=== PATIENT | female | born 1970 | race Caucasian/White ===

== ENCOUNTER 2017-08-28 14:47 | Emergency (ER) | payer OTHER ==
--- NOTE | 2017-08-28 15:40 | UC ---
Skin Complaint HPI - HPI Summary HPI Summary: Pt presents with rash to b/l ankles first noticed 3 days ago. She tells me that she was wearing ankle-high "mud boots" and walking through a field near her house. Later that night she noticed itching and redness to her ankles. This has persisted and today she noticed a small blister form on the inside of her left ankle. Denies drainage, bleeding, pain, or spreading of rash. - History of Current Complaint Time Seen by Provider: 08/28/17 15:40 Stated Complaint: RASH ON FEET Hx Obtained From: Patient Hx Last Menstrual Period: 10/08/12 Onset/Duration: Sudden Onset Skin Exposure Onset/Duration: Days Ago Timing: Constant Onset Severity: Mild Current Severity: Mild Pain Intensity: 2 Pain Scale Used: 0-10 Numeric - Allergy/Home Medications Allergies/Adverse Reactions: Allergies Allergy/AdvReac Type Severity Reaction Status Date / Time apple Allergy Swelling Verified 08/28/17 15:46 Of Face,Lips,& Throat Beef Containing Products Allergy Anaphylatic Verified 08/28/17 15:46 Shock Egg Derived Allergy Anaphylatic Verified 08/28/17 15:47 Shock gluten Allergy Rash Verified 08/28/17 15:47 lactose Allergy Rash Verified 08/28/17 15:46 shellfish derived Allergy Anaphylatic Verified 08/28/17 15:48 Shock Review of Systems Constitutional: Negative Skin: Rash Respiratory: Negative Cardiovascular: Negative Gastrointestinal: Negative Neurovascular: Negative Neurological: Negative Psychological: Negative All Other Systems Reviewed And Are Negative: Yes PMH/Surg Hx/FS Hx/Imm Hx Respiratory History: Asthma - Surgical History Surgical History: Yes Surgery Procedure, Year, and Place: [place] Teeth Removal 1986 - Family History Known Family History: Positive: None - Social History Lives: With Family Alcohol Use: None Substance Use Type: Cocaine Smoking Status (MU): Never Smoked Tobacco Physical Exam - Summary Physical Exam Summary: GENERAL: NAD. WDWN. No pain distress. SKIN: B/L ankles: Mild erythematous maculopapular rash to medial left and right ankle. Left medial ankle with a 4mm intact blister. No bleeding, discharge, streaking, or open sore. NECK: Supple. Nontender. No lymphadenopathy. CHEST: CTAB. No r/r/w. No accessory muscle use. Breathing comfortably and in no distress. CV: RRR. Without m/r/g. Pulses intact. Brisk cap refill. NEURO: Alert. CN II-XII grossly intact. PSYCH: Age appropriate behavior. Triage Information Reviewed: Yes Course/Dx - Course Course Of Treatment: Suspect contact dermatitis. Will rx for steroid cream. F/u prn - Diagnoses Provider Diagnoses: Contact dermatitis b/l ankles Discharge - Sign-Out/Discharge Documenting (check all that apply): Discharge/Admit/Transfer - Discharge Plan Condition: Stable Disposition: HOME Prescriptions: Betamethasone June 0.1% CM(NF) [Valisone 0.1% CM(NF)] 1 applic TOPICAL BID #1 tube Patient Education Materials: Contact Dermatitis (DC) Referrals: Lakeshia Cole MD [Primary Care Provider] - Additional Instructions: If you develop a fever, shortness of breath, chest pain, new or worsening symptoms - please call your PCP or go to the ED. Your blood pressure was high at todays visit. Please see your primary provider within 4 weeks for recheck and re-evaluation. - Billing Disposition and Condition Condition: STABLE Disposition: HOME Images Feet (Multiple View): 1 - Rash 2 - Rash
[2017-08-28 15:41] VITALS: BP 144/95
[2017-08-28] MEDS ORDERED: Hydrocortisone 1% CREAM* 30 GM TUBE TOPICAL ONE (16:01)
== END 2017-08-28 16:15 | disposition home or self-care (01) ==
LOC: UCEAST 14:47
DX: L25.9 Unspecified contact dermatitis, unspecified cause (principal); J45.909 Unspecified asthma, uncomplicated
CPT/HCPCS: 99212; A9270-GY; G0463

== ENCOUNTER 2018-09-29 08:27 | Emergency (ER) | payer OTHER ==
[2018-09-29 08:40] VITALS: BP 142/90
--- NOTE | 2018-09-29 09:42 | ED ---
Throat Pain/Nasal Congestion - HPI Summary HPI Summary: 48 yr old with intermittent sore throat, and sweats and fatigue. Onset of symptoms over a month ago. SHe is concerned that she has mono. She denies stridor, drooling. Symptoms are moderate. She has not taken her temperature. - History of Current Complaint Chief Complaint: UCGeneralIllness Time Seen by Provider: 09/29/18 09:06 - Allergies/Home Medications Allergies/Adverse Reactions: Allergies Allergy/AdvReac Type Severity Reaction Status Date / Time apple Allergy Swelling Verified 09/29/18 08:41 Of Face,Lips,& Throat Beef Containing Products Allergy Anaphylatic Verified 09/29/18 08:41 Shock Egg Derived Allergy Anaphylatic Verified 09/29/18 08:41 Shock gluten Allergy Rash Verified 09/29/18 08:41 lactose Allergy Rash Verified 09/29/18 08:41 shellfish derived Allergy Anaphylatic Verified 09/29/18 08:41 Shock Home Medications: Home Medications Multivitamin [Multivitamins] 1 tab PO DAILY 09/29/18 [History Confirmed 09/29/18 ] PMH/Surg Hx/FS Hx/Imm Hx Endocrine/Hematology History: Denies: Hx Diabetes, Hx Thyroid Disease Cardiovascular History: Denies: Hx Hypertension Respiratory History: Reports: Hx Asthma Denies: Hx Chronic Obstructive Pulmonary Disease (COPD) GI History: Denies: Hx Ulcer - Surgical History Surgery Procedure, Year, and Place: [place] Teeth Removal 1986 Infectious Disease History: No Infectious Disease History: Denies: Hx Hepatitis, Hx Human Immunodeficiency Virus (HIV), Traveled Outside the [place] in Last 30 Days - Family History Known Family History: Positive: None - Social History Occupation: Employed Full-time Alcohol Use: None Substance Use Type: Reports: None Smoking Status (MU): Never Smoked Tobacco Review of Systems Positive: Chills, Fatigue Positive: Sore Throat All Other Systems Reviewed And Are Negative: Yes Physical Exam Triage Information Reviewed: Yes Vital Signs On Initial Exam: Initial Vitals Temp Pulse Resp BP Pulse Ox 98 F 81 17 142/90 99 09/29/18 08:37 09/29/18 08:37 09/29/18 08:37 09/29/18 08:37 09/29/18 08:37 Vital Signs Reviewed: Yes Appearance: Positive: Well-Appearing, No Pain Distress, Obese Skin: Positive: Warm, Skin Color Reflects Adequate Perfusion Head/Face: Positive: Normal Head/Face Inspection Eyes: Positive: EOMI, DEON ENT: Positive: Pharyngeal erythema. Negative: Nasal congestion, Nasal drainage Neck: Positive: Nontender, No Lymphadenopathy Respiratory/Lung Sounds: Positive: Clear to Auscultation, Breath Sounds Present Cardiovascular: Positive: RRR. Negative: Murmur Abdomen Description: Negative: Distended Musculoskeletal: Positive: Strength/ROM Intact Neurological: Positive: Sensory/Motor Intact, Alert, Oriented to Person Place, Time, CN Intact II-III Psychiatric: Positive: Normal Diagnostics - Vital Signs Vital Signs Temp Pulse Resp BP Pulse Ox 09/29/18 08:37 98 F 81 17 142/90 99 - Laboratory Lab Results: Lab Results 09/29/18 Range/Units 09:26 Group A Strep Rapid Negative (Negative) Lab Statement: Any lab studies that have been ordered have been reviewed, and results considered in the medical decision making process. EENT Course/Dx - Course Course Of Treatment: 48 yr old with sore throat and fatigue. mono spot sent. FU with PMD. - Diagnoses Provider Diagnoses: Sore throat, Hypertension Discharge - Sign-Out/Discharge Documenting (check all that apply): Patient Departure All imaging exams completed and their final reports reviewed: No Studies - Discharge Plan Condition: Good Disposition: HOME Patient Education Materials: Pharyngitis (ED), Fatigue (ED), Hypertension (ED) Referrals: Lakeshia Cole MD [Primary Care Provider] - As Soon As Possible - Billing Disposition and Condition Condition: GOOD Disposition: Home
[2018-09-30 16:21] LABS: EBV Capsid Ag IgG Ab Positive (Negative); EBV Capsid Ag IgM Ab Negative (Negative); Epstein-Barr Nuclear Antigen Positive (Negative)
== END 2018-09-29 09:49 | disposition home or self-care (01) ==
LOC: UCEAST 08:27
DX: J02.9 Acute pharyngitis, unspecified (principal); I10 Essential (primary) hypertension
CPT/HCPCS: 36415; 86308; 86664; 86665; 87651; 99211; G0463

== ENCOUNTER 2019-02-28 11:36 | Emergency (ER) | payer OTHER ==
--- OUTSIDE RECORDS SUMMARY | 2019-02-28 11:41 | XMS REPORT | Continuity of Care Document ---
:1970 External Reference #:[id number] Author Name Alycia Swenson M.D. Address [address] [place] [address] Care Team Providers Name Role Phone Lakeshia Vitale M.D. 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 Onset: 01/02/2019 Allergic rhinitis Alycia Swenson M.D. Onset: 01/02/2019 Mild intermittent asthma Alycia Swenson M.D. Onset: 01/02/2019 Headache Alycia Swenson M.D. Onset: 01/02/2019 Social History Type Date Description Comments Sex Unknown ETOH Use Denies alcohol use Tobacco Use Start: Unknown Patient has never smoked Recreational Drug Use Denies Drug Use Allergies, Adverse Reactions, Alerts Description No Known Drug Allergies Medications Active Medications SIG Qnty Indications Ordering Provider Date Albuterol Sulfate HFA Lakeshia Vitale M.D. 108(90Base) mcg/Act Aerosol Advair Diskus prn Lakeshia Vitale M.D. 250-50mcg/Dose Aerosol Epipen 2-Angel use as directed Unknown 0.3mg/0.3ML Solution Auto-Inject Immunizations Description No Information Available Vital Signs Date Vital Result Comment 01/02/2019 2:05pm Height 68 inches 5'8" Weight 266.00 lb Weight 120.658 kg Respiratory Rate 16 /min Heart Rate 77 /min O2 % BldC Oximetry 98 % BP Systolic 119 mmHg BP Diastolic 71 mmHg Asthma Control Test 21 BMI (Body Mass Index) 40.4 kg/m2 Results Description No Information Available Procedures Date Code Description Status 01/02/2019 86271 Pre PFT Completed Medical Devices Description No Information Available Encounters Type Date Location Provider Dx Diagnosis Office Visit 01/02/2019 2:00p Mobile Alycia Swenson M.D. R51 Headache J45.20 Mild intermittent asthma, uncomplicated J30.9 Allergic rhinitis, unspecified L27.2 Dermatitis due to ingested food Assessments Date Code Description Provider 01/02/2019 R51 Headache Alycia Swenson M.D. 01/02/2019 J45.20 Mild intermittent asthma, uncomplicated Alycia Swenson M.D. 01/02/2019 J30.9 Allergic rhinitis, unspecified Alycia Swenson M.D. 01/02/2019 L27.2 Dermatitis due to ingested food Alycia Swenson M.D. Plan of Treatment No Information Available Functional Status Description No Information Available Mental Status Description No Information Available Referrals Refer to Reason for Referral Status Appt Date Ashia Hamilton MD Created [facility] [address] [place] [id number] [phone]
[2019-02-28 11:56] VITALS: BP 123/80
--- NOTE | 2019-02-28 12:42 | UC ---
Ear Complaint HPI - HPI Summary HPI Summary: pain in right ear for several days history of cerumen impaction-was used sesame oil for a few days-now has pain in right ear and decreased hearing - History of Current Complaint Chief Complaint: UCEar Stated Complaint: EAR COMPLAINT Time Seen by Provider: 02/28/19 12:37 Hx Obtained From: Patient Hx Last Menstrual Period: current ?: No Onset/Duration: Gradual Onset, Lasting Days, Still Present Severity Initially: Mild Severity Currently: Moderate Aggravating Factors: Nothing Alleviating Factors: Nothing Associated Signs/Symptoms: Positive: Hearing Loss - Allergies/Home Medications Allergies/Adverse Reactions: Allergies Allergy/AdvReac Type Severity Reaction Status Date / Time apple Allergy Swelling Verified 02/28/19 11:53 Of Face,Lips,& Throat Beef Containing Products Allergy Anaphylatic Verified 02/28/19 11:53 Shock Egg Derived Allergy Anaphylatic Verified 02/28/19 11:53 Shock gluten Allergy Rash Verified 02/28/19 11:53 lactose Allergy Rash Verified 02/28/19 11:53 shellfish derived Allergy Anaphylatic Verified 02/28/19 11:53 Shock PMH/Surg Hx/FS Hx/Imm Hx Previously Healthy: Yes - Surgical History Surgical History: Yes Surgery Procedure, Year, and Place: [place] Teeth Removal 1986 - Family History Known Family History: Positive: None - Social History Occupation: Employed Full-time Lives: With Family Alcohol Use: None Substance Use Type: None Smoking Status (MU): Never Smoked Tobacco Review of Systems All Other Systems Reviewed And Are Negative: Yes Constitutional: Positive: Negative Skin: Positive: Negative Eyes: Positive: Negative ENT: Positive: Ear Ache - right Respiratory: Positive: Negative Cardiovascular: Positive: Negative Gastrointestinal: Positive: Negative Genitourinary: Positive: Negative Motor: Positive: Negative Neurovascular: Positive: Negative Musculoskeletal: Positive: Negative Neurological: Positive: Negative Psychological: Positive: Negative Is Patient Immunocompromised?: No Physical Exam Triage Information Reviewed: Yes Appearance: Well-Appearing, No Pain Distress, Well-Nourished Vital Signs: Initial Vital Signs Temp 98.4 F 02/28/19 11:47 Pulse 88 02/28/19 11:47 Resp 16 02/28/19 11:47 BP 123/80 02/28/19 11:47 Pulse Ox 99 02/28/19 11:47 Vital Signs Reviewed: Yes Eye Exam: Normal Eyes: Positive: Conjunctiva Clear ENT Exam: Normal ENT: Positive: Normal ENT inspection, Hearing grossly normal, Pharynx normal, Nasal congestion, Other - bilateral ceruem impation r>l. Negative: Trismus, Muffled voice, Hoarse voice Dental Exam: Normal Neck exam: Normal Neck: Positive: Supple, Nontender, No Lymphadenopathy Respiratory Exam: Normal Respiratory: Positive: Chest non-tender, No respiratory distress, No accessory muscle use Cardiovascular Exam: Normal Cardiovascular: Positive: RRR, Pulses Normal, Brisk Capillary Refill Musculoskeletal Exam: Normal Musculoskeletal: Positive: Strength Intact, ROM Intact, No Edema Neurological Exam: Normal Neurological: Positive: Alert, Muscle Tone Normal Psychological Exam: Normal Skin Exam: Normal Ear Complaint Course/Dx - Course Course Of Treatment: good relief of pain and impaction with flush will follow with pcp prn - Differential Dx/Diagnosis Provider Diagnosis: Impacted cerumen of both ears Discharge ED - Sign-Out/Discharge Documenting (check all that apply): Patient Departure All imaging exams completed and their final reports reviewed: No Studies - Discharge Plan Condition: Stable Disposition: HOME Patient Education Materials: Cerumen Impaction (ED) Referrals: Lakeshia Cole MD [Primary Care Provider] - If Needed - Billing Disposition and Condition Condition: STABLE Disposition: Home
== END 2019-02-28 13:00 | disposition home or self-care (01) ==
LOC: UCEAST 11:36
DX: H61.23 Impacted cerumen, bilateral (principal); Z91.013 Allergy to seafood; Z91.012 Allergy to eggs; Z91.018 Allergy to other foods; Z91.011 Allergy to milk products
CPT/HCPCS: 99213; G0463

== ENCOUNTER 2019-03-27 19:24 | Emergency (ER) | payer OTHER ==
[2019-03-27 19:42] VITALS: BP 138/70
--- NOTE | 2019-03-27 20:01 | UC ---
Respiratory Complaint HPI - HPI Summary HPI Summary: patient with exacerbation of asthma symptoms---patient states chest is tight she did start to use her advair MDI--and using her albuterol 4-5 times a day-- low grade fever and fatigue---states she has not felt well since July when dx with ebv-- - History of Current Complaint Chief Complaint: UCRespiratory Stated Complaint: POSS URI, HAS ASTMHA, TROUBLE BREATHING Time Seen by Provider: 03/27/19 19:49 Hx Obtained From: Patient Hx Last Menstrual Period: 02/28/2019 ?: No Onset/Duration: Gradual Onset, Still Present Timing: Constant Pain Intensity: 0 Pain Scale Used: 0-10 Numeric Character: Cough: Nonproductive Aggravating Factors: Exertion, Deep Breaths, Recumbent Position Alleviating Factors: Bronchodilator Associated Signs And Symptoms: Positive: URI - Allergies/Home Medications Allergies/Adverse Reactions: Allergies Allergy/AdvReac Type Severity Reaction Status Date / Time apple Allergy Swelling Verified 03/27/19 19:42 Of Face,Lips,& Throat Beef Containing Products Allergy Anaphylatic Verified 03/27/19 19:42 Shock Egg Derived Allergy Anaphylatic Verified 03/27/19 19:42 Shock gluten Allergy Rash Verified 03/27/19 19:42 lactose Allergy Rash Verified 03/27/19 19:42 shellfish derived Allergy Anaphylatic Verified 03/27/19 19:42 Shock Home Medications: Home Medications Albuterol HFA INHALER* [Ventolin HFA Inhaler*] 2 puff INH Q4HR PRN 03/27/19 [ History Confirmed 03/27/19] Cholecalciferol (Vitamin D3) [Vitamin D3] 1,000 unit PO DAILY 03/27/19 [History Confirmed 03/27/19] Fluticasone-Salmeterol 250-50* [Advair Diskus 250-50*] 1 puff INH DAILY [History Confirmed 03/27/19] Loratadine [Claritin 10 MG CAP] 10 mg PO DAILY PRN 03/27/19 [History Confirmed 03/27/19] Magnesium 30 mg PO DAILY 03/27/19 [History Confirmed 03/27/19] Vitamin B Complex CAP* [B Complex CAP*] 1 cap PO DAILY 03/27/19 [History Confirmed 03/27/19] PMH/Surg Hx/FS Hx/Imm Hx Previously Healthy: No - EBV Respiratory History: Asthma - Surgical History Surgical History: Yes Surgery Procedure, Year, and Place: [place] Teeth Removal 1986 - Family History Known Family History: Positive: None - Social History Occupation: Unemployed Lives: Alone Alcohol Use: None Substance Use Type: None Smoking Status (MU): Never Smoked Tobacco Review of Systems All Other Systems Reviewed And Are Negative: Yes Constitutional: Positive: Fatigue Skin: Positive: Negative Eyes: Positive: Negative ENT: Positive: Negative Respiratory: Positive: Cough, Other - lung tightness Cardiovascular: Positive: Negative Gastrointestinal: Positive: Negative Genitourinary: Positive: Negative Motor: Positive: Negative Neurovascular: Positive: Negative Musculoskeletal: Positive: Negative Neurological: Positive: Negative Psychological: Positive: Negative Is Patient Immunocompromised?: No Physical Exam Triage Information Reviewed: Yes Appearance: No Pain Distress, Ill-Appearing - mild, Obese Vital Signs: Initial Vital Signs Temp 98.1 F 03/27/19 19:32 Pulse 100 03/27/19 19:32 Resp 20 03/27/19 19:32 BP 138/70 03/27/19 19:32 Pulse Ox 98 03/27/19 19:32 Vital Signs Reviewed: Yes Eye Exam: Normal Eyes: Positive: Conjunctiva Clear ENT Exam: Normal ENT: Positive: Normal ENT inspection, Pharynx normal, TMs normal, Uvula midline. Negative: Nasal congestion, Nasal drainage, Trismus, Muffled voice, Hoarse voice, Dental tenderness, Sinus tenderness Dental Exam: Normal Neck exam: Normal Neck: Positive: Supple, Nontender, No Lymphadenopathy Respiratory Exam: Normal Respiratory: Positive: Chest non-tender, Lungs clear, Normal breath sounds, No respiratory distress, No accessory muscle use Cardiovascular Exam: Normal Cardiovascular: Positive: RRR, No Murmur, Pulses Normal, Brisk Capillary Refill Musculoskeletal Exam: Normal Musculoskeletal: Positive: Strength Intact, ROM Intact, No Edema Neurological Exam: Normal Neurological: Positive: Alert, Muscle Tone Normal Psychological Exam: Normal Skin Exam: Normal Respiratory Course/Dx - Course Course Of Treatment: patient refused EKG--encouraged advair regularly and increase prn albuterol---d /t asthma and chronic fatigue will also add z-pack patient understands to follow with pcp this week - Differential Dx/Diagnosis Provider Diagnosis: Bronchospasm with bronchitis, acute, Exacerbation of asthma Discharge ED - Sign-Out/Discharge Documenting (check all that apply): Patient Departure All imaging exams completed and their final reports reviewed: No Studies - Discharge Plan Condition: Stable Disposition: HOME Prescriptions: Azithromycin TAB* [Zithromax TAB (Z-AGNES) 250 mg #6 tabs] 2 tab PO .TODAY, THEN 1 DAILY #1 agnes Patient Education Materials: Chronic Fatigue Syndrome (ED), Acute Bronchitis ( ED), Bronchospasm (ED) Referrals: Lakeshia Cole MD [Primary Care Provider] - 3 Days - Billing Disposition and Condition Condition: STABLE Disposition: Home
== END 2019-03-27 20:29 | disposition home or self-care (01) ==
LOC: UCEAST 19:24
DX: J45.901 Unspecified asthma with (acute) exacerbation (principal); J20.9 Acute bronchitis, unspecified; Z91.018 Allergy to other foods; Z91.012 Allergy to eggs; Z91.09 Other allergy status, other than to drugs and biological substances; Z91.011 Allergy to milk products; Z91.013 Allergy to seafood; Z79.899 Other long term (current) drug therapy
CPT/HCPCS: 99212; G0463

== ENCOUNTER 2019-04-09 18:00 | Observation (INO) | payer OTHER ==
[2019-04-09] MEDS ORDERED: Midazolam concentrated* 5 MG/ML 1 ml VIAL ONE ×2 (18:41)
--- NOTE | 2019-04-09 18:50 | ED ---
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 She states that she was helping a lady out when she slipped and landed directly on her elbow. She states that she has increased pain with movement of her elbow and states that she is very anxious about her injury. She denies any fevers, N/V/D, and headaches. She states that she did not take any medications for the pain and states that she has no alleviating factors. She states that she has never had any musculoskeletal injuries before. She has no pertinent PMHx. - History of Current Complaint Chief Complaint: EDGeneral Stated Complaint: LT ELBOW PAIN PER EMS Time Seen by Provider: 04/09/19 18:14 Hx Obtained From: Patient Hx Last Menstrual Period: 02/28/2019 Mechanism Of Injury: Fall From A Standing Position Onset/Duration: Started Minutes Ago - HEMOTHERAPIST, Still Present Timing: Constant Severity Initially: Moderate - 6/10 Severity Currently: Moderate - 6/10 Pain Location: Elbow - L Aggravating Factor(s): Movement Alleviating Factor(s): Nothing Associated Signs & Symptoms: Positive: Negative - headache, Other - states extreme pain with movement. Negative: Fever - states extreme pain with movement , anxious, Nausea, Vomiting - Allergies/Home Medications Allergies/Adverse Reactions: Allergies Allergy/AdvReac Type Severity Reaction Status Date / Time apple Allergy Severe Swelling Verified 04/14/19 11:40 Of Face,Lips,& Throat banana Allergy Severe Airway Verified 04/14/19 11:40 Obstruction Beef Containing Products Allergy Severe Anaphylatic Verified 04/14/19 11:40 Shock cashew nut Allergy Severe Numbness Verified 04/14/19 11:40 And Tingling Egg Derived Allergy Severe Anaphylatic Verified 04/14/19 11:40 Shock eggplant Allergy Severe Anaphylatic Verified 04/14/19 11:40 Shock Fish Containing Products Allergy Severe Anaphylatic Verified 04/14/19 11:40 Shock gluten Allergy Severe Rash Verified 04/14/19 11:40 hazelnut Allergy Severe lip Verified 04/14/19 11:40 swelling, some constriction of throat lactose Allergy Severe GI Upset Verified 04/14/19 11:40 melon Allergy Severe Anaphylatic Verified 04/14/19 11:40 Shock shellfish derived Allergy Severe Anaphylatic Verified 04/14/19 11:40 Shock any med with egg in it Allergy Severe Anaphylatic Uncoded 04/14/19 11:40 Shock tyramine Allergy Severe migraine Uncoded 04/14/19 11:40 PMH/Surg Hx/FS Hx/Imm Hx Previously Healthy: Yes Endocrine/Hematology History: Denies: Hx Diabetes, Hx Thyroid Disease Cardiovascular History: Denies: Hx Hypertension Respiratory History: Reports: Hx Asthma Denies: Hx Chronic Obstructive Pulmonary Disease (COPD) GI History: Denies: Hx Ulcer Sensory History: Reports: Hx Contacts or Glasses - reading Opthamlomology History: Reports: Hx Contacts or Glasses - reading Psychiatric History: Reports: Hx Post Traumatic Stress Disorder - Cancer History Hx Chemotherapy: No Hx Radiation Therapy: No - Surgical History Surgical History: Yes Surgery Procedure, Year, and Place: [place] Teeth Removal 1986 - Immunization History Immunizations Up to Date: Yes Infectious Disease History: No Infectious Disease History: Denies: Hx Hepatitis, Hx Human Immunodeficiency Virus (HIV), Traveled Outside the [place] in Last 30 Days - Family History Known Family History: Positive: Cardiac Disease - Father: AFIB, Blood Disorder - Hypercholesterolemia - Social History Occupation: Unemployed, Employed Full-time Lives: Alone Alcohol Use: None Hx Substance Use: No Substance Use Type: Reports: None Hx Tobacco Use: No Smoking Status (MU): Never Smoked Tobacco Review of Systems Negative: Fever, Chills Negative: Vomiting, Diarrhea, Nausea Musculoskeletal: Other - Pain about the L elbow, increased with ROM Negative: Headache Positive: Anxious All Other Systems Reviewed And Are Negative: Yes Physical Exam - Summary Physical Exam Summary: Constitutional: Well-developed, Well-nourished, Alert. (-) Distressed Skin: Warm, Dry HENT: Normocephalic; Atraumatic Eyes: Conjunctiva normal Neck: Musculoskeletal ROM normal neck. (-) JVD, (-) Stridor, (-) Tracheal deviation Cardio: Rhythm regular, rate normal, Heart sounds normal; Intact distal pulses; The pedal pulses are 2+ and symmetric. Radial pulses are 2+ and symmetric, warm and well perfused Pulmonary/Chest wall: Effort normal. (-) Respiratory distress, (-) Wheezes, (-) Rales Abd: Soft, (-) tenderness, (-) Distension, (-) Guarding, (-) Rebound Musculoskeletal: (-) Edema, significant amount of tenderness about the L elbow but she is not allowing any form of evaluation Neuro: Alert, Oriented x3, Motor and sensory movements are normal Psych: Extremely anxious Triage Information Reviewed: Yes Vital Signs On Initial Exam: Initial Vitals Temp Pulse Resp BP Pulse Ox 99.6 F 105 20 120/94 93 04/09/19 18:23 04/09/19 18:23 04/09/19 18:23 04/09/19 18:23 04/09/19 18:23 Vital Signs Reviewed: Yes Procedures - Sedation Patient Received Moderate/Deep Sedation with Procedure: No Diagnostics - Vital Signs Vital Signs Temp Pulse Resp BP Pulse Ox 04/09/19 18:23 99.6 F 105 20 120/94 93 - Laboratory Result Diagrams: 04/10/19 02:41 04/10/19 02:41 Lab Statement: Any lab studies that have been ordered have been reviewed, and results considered in the medical decision making process. Re-Evaluation - Re-Evaluation First Eval Re-Evaluation Time: 00:19 Change: Unchanged Comment: Pt is currently unable to receive a splint due to her pain and is currently having extreme anxiety from the need for surgery. She states that the pain is too much and will be given more fentanyl. 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 She states that she was helping a lady out when she slipped and landed directly on her elbow. Her PE found that she is extremely anxious and that she has extreme tenderness about the L elbow with ROM. She was given a valium and her L elbow X-Ray will be taken after the medication has taken affect. She will be signed out to Dr. Beyer at shift change pending a L elbow X-Ray and further work-up at fit change 1900 04/09/19. - Diagnoses Provider Diagnoses: Comminuted fracture of left humerus Discharge ED - Sign-Out/Discharge Documenting (check all that apply): Sign-Out Patient Signing out patient TO: Heena Beyer - Discharge Plan Condition: Stable Disposition: ADMITTED TO [facility] - Billing Disposition and Condition Condition: STABLE Disposition: Admitted to [facility] - Attestation Statements Document Initiated by Saeedibingrid: Yes Documenting Scribe: Rich Pena Provider For Whom Scribe is Documenting (Include Credential): Ilya Ordonez MD Scribe Attestation: IRich, scribed for Ilya Ordonez MD on 04/16/19 at 1829. Scribe Documentation Reviewed: Yes Provider Attestation: The documentation as recorded by the saeedibRich quintero accurately reflects the service I personally performed and the decisions made by me, Ilya Ordonez MD Status of Scribe Document: Viewed
--- NOTE | 2019-04-09 19:03 | ED ---
Progress - Progress Note Progress Note: This pt is sign out to Dr. Beyer from Dr. Ordonez at shift change 1900 pending X-Rays of her L elbow and further workup and disposition. - Results/Orders Results/Orders: Pt was unable to have an X-Ray completed due to her pain. She received a CT of her upper extremity that showed the following: Acute traumatic proximal radial and ulnar fractures. Recommend dedicated left elbow radiographs. ED physician has reviewed this report. Re-Evaluation - Re-Evaluation First Eval Re-Evaluation Time: 00:19 Change: Unchanged Comment: Pt is currently unable to receive a splint due to her pain and is currently having extreme anxiety from the need for surgery. She states that the pain is too much and will be given more fentanyl. Course/Dx - Course Course Of Treatment: This pt is sign out to Dr. Beyer from Dr. Ordonez at shift change 1900 04/09/19 pending X-Rays of her L elbow and further workup and disposition. Patient was in severe pain and unable to cooperate for x-rays initially. After multiple doses of medication she was able to have CT obtained. Elbow demonstrates multiple comminuted fractures. Discussed with orthopedics concreter. Patient placed in a splint as advised. X-rays taken. The patient was admitted for pain control. 50 fentanyl, 5 versed - Diagnoses Provider Diagnoses: Comminuted fracture of left humerus - Provider Notifications Discussed Care Of Patient With: Amadeo Vegas Time Discussed With Above Provider: 03:32 Instructed by Provider To: Admit As Inpatient Admit/Transition Orders Completed By ED Provider: Yes Discharge ED - Sign-Out/Discharge Documenting (check all that apply): Patient Departure - admitted, Receiving Sign -Out Receiving patient FROM: Ilya Ordonez All imaging exams completed and their final reports reviewed: Yes - Discharge Plan Condition: Stable Disposition: ADMITTED TO [facility] - Billing Disposition and Condition Condition: STABLE Disposition: Admitted to [facility] - Attestation Statements Document Initiated by Scribe: Yes Documenting Scribe: Rich Pena Provider For Whom Scribe is Documenting (Include Credential): Heena Beyer MD Scribe Attestation: Rich Walton, scribed for Heena Beyer MD on 04/13/19 at 1953. Scribe Documentation Reviewed: Yes Provider Attestation: The documentation as recorded by the tamaribeRich accurately reflects the service I personally performed and the decisions made by me, Heena Beyer MD Status of Scribe Document: Viewed Procedures - Sedation Patient Received Moderate/Deep Sedation with Procedure: No - Splinting Left Upper Extremity Location: L elbow Hand-Made Type: fiberglass Splint: Long arm Pre-Proc Neuro Vasc Exam: normal Post-Proc Neuro Vasc Exam: normal Splint Applied by Provider: Heena Beyer
[2019-04-09] MEDS ORDERED: NS 0.9% 1000 ML** 1,000 ML IV ONE (19:30)
[2019-04-09] MEDS ORDERED: fentaNYL* 50 MCG/ML 2 ML VIAL (100 MCG VIAL) IV SLOW PU ONE ×2 (19:30→20:13)
[2019-04-10] MEDS ORDERED: fentaNYL* 50 MCG/ML 2 ML VIAL (100 MCG VIAL) IV SLOW PU ONE (00:31)
[2019-04-10] MEDS ORDERED: Acetaminophen TAB* 325 MG PO PRN ×2 (02:05→11:40)
[2019-04-10] MEDS ORDERED: MAGNESIUM 30 MG PO PRN (02:08)
[2019-04-10] MEDS ORDERED: Albuterol HFA INHALER* 8 gm MDI INH PRN (02:08)
[2019-04-10] MEDS ORDERED: NS 0.9% 1000 ML** 1,000 ML IV SCH (02:15)
[2019-04-10 02:51] LABS: Hematocrit 42 % (35-47); Hemoglobin 14.2 g/dL (12.0-16.0); Mean Corpuscular HGB Conc 34 g/dL (31-36); Mean Corpuscular Hemoglobin 29 pg (27-31); Mean Corpuscular Volume 86 fL (80-97); Mean Platelet Volume 6.4 fL (7.4-10.4); Platelet Count 349 10^3/uL (150-450); Red Blood Count 4.87 10^6 /uL (3.70-4.87); Red Cell Distribution Width 14 % (10-15); White Blood Count 8.2 10^3/uL (3.5-10.8)
[2019-04-10 03:05] LABS: BUN/Creatinine Ratio 7.9 (8-20); Calcium 8.7 mg/dL (8.6-10.3); EGFR African American 97.9 (>60); EGFR Non-African American 80.9 (>60); Potassium 3.9 mmol/L (3.5-5.0)
[2019-04-10] MEDS: Morphine INJ* 2 MG/ML 1 ML SYRINGE (TWO MG - NEW SYRINGE VERSION) IV PRN ×2 (03:53→09:16)
[2019-04-10] MEDS: Heparin VIAL(*) 5000 UNITS/ML VIAL (FIVE THOUSAND) SUBCUT SCH ×2 (05:13→14:22)
--- NOTE | 2019-04-10 08:43 | HP ---
History of Present Illness - History of Present Illness History of Present Illness: 48 yo female with hx of migraine sustained a mechanicall fall today landing on her left arm. She had imaging of her arm today which shows acute fracture of proximal radial and ulnar bones. Orthopedics was consulted in the ED and recommended to splint the patient's arm and that they will take her to surgery in a day or 2 to give the inflammation enough time to settle. - Past Medical History Psych: Anxiety - Past Surgical History Past Surgical History: Other - wisdom tooth removed - Past Family History Family History: Hypertension - Past Social History Smoke: No Alcohol: None Drugs: None Lives: Alone Review of Systems - Measurements Intake and Output: Intake and Output Last 24 Hours 04/08/19 04/09/19 04/10/19 04/11/19 06:59 06:59 06:59 06:59 Intake Total 1000 Output Total 0 Balance 1000 Weight 267 lb Intake: IV Fluids 1000 Oral 0 Output: Urine 0 - Review of Systems Constitutional Symptoms: Negative: Weight Gain, Weight Loss, Weakness, Fatigue, Fever, Night Sweats, Unexplained Falls, Other Dermatology: Negative: Normal, Rash, Skin Lesions, Cancer, Skin Lumps, Other HEENT: Negative: Normal, Change in Hearing, Vertigo, Dental Problems, Tinnitus, Sinus Problem, Other Eyes: Negative: Normal, Change in Vision, Double Vision, Eye Pain, Glaucoma, Cataract, Contacts or Glasses, Other Thyroid: Negative: Normal, Goiter, Thyroid Nodule, Cold Intolerance, Heat Intolerance , Sweatiness, Tremor, Frequent Defecation, Constipation, Palpitations, Primary Hypothyroidism, Primary Hyperthyroidism, Weight Loss, Weight Gain, Change in Skin/Hair, Change in Menstruation, Radiation Exposure, Other Pulmonary: Negative: Normal, Cough, Sputum, Hemoptysis, Wheezing, Respiratory Distress, Shortness of Breath, COPD, Asthma, Exercise Intolerance, Home Oxygen, Other Cardiology: Negative: Normal, Chest Pain, Shortness of Breath, Palpitations, Swelling of Ankles, Peripheral Vascular Dis, Edema, Faintness, Syncope, Claudication, Proximal NocturnalDyspnea, Orthopnoea, Other Gastroenterology: Negative: Normal, Abdominal Pain, Nausea, Vomiting, Anorexia, Indigestion, Difficulty Swallowing, Heartburn, Constipation, Diarrhea, Blood in Stools, Change in Bowel Habits, Haematemesis, Melena, Other Genital - Urinary: Negative: Normal, Dysuria, Hematuria, Polyuria, Nocturia, Other Genitourinay - Female: Negative: Menses Normal, Vaginal Discharge, Menopause, Dysmenorrhea, Other Musculoskeletal: Positive: Other - left arm splinted Endocrinology: Negative: Normal, Thyroid Problems, Adrenal Problems, Gonadal Problems, Family Hx Endocrine Disorders, Obesity, Diabetes Mellitus, Hyperglycemia, Hx Hypoglycemia, Diabetic Foot Ulcers, Calluses, Hirsutism, Menstrual Abnormalities , Polydipsia, Polyuria, Gonadal Problems, Gynecomastia, Pituitary disease, Other Hematologic/Lymphatic: Negative: Anemia, Easy Bruising, Hx Leukemia, Hx Lymphoma, Use of Anticoagulant, Use of Antiplatelet Drugs, Other Neurology: Negative: Normal, Headache, Migraines, Change in Vision, Diplopia, Dizziness , Change in Balancing, Change in Coordination, Change in Memory, Change in Speech, Change in Sphincter Function, Change in Walking, Numbness\Paresthesiae, Unexplained Weakness, Hx of Stroke\TIA, Hx of Seizures, Other Psychiatry: Negative: Normal, Depression, Anxiety, Depressed Mood, Anhedonia, Sexual Dysfunction, Weight Change, Guilt Feelings, Tearfulness, Unusual Fatigue, Unusual Anxiety, Suicidal Ideation, Hypomania, Eating Disorders, Other Allergic/Immunologic: Negative: Hx Anaphylaxis, Hx Angioedema, Hx Environmental, Hx Seasonal, Asthma, Hx HIV, Immunocompromise, Swollen Glands LymphNodes, Other Objective Active Medications: Acetaminophen (Tylenol Tab*) 650 mg PO Q4H PRN PRN Reason: PAIN - MILD Albuterol (Ventolin Hfa Inhaler*) 2 puff INH Q4HR PRN PRN Reason: SHORTNESS OF BREATH Cholecalciferol (Vitamin D Tab*) 1,000 units PO DAILY [facility] Heparin Sodium (Porcine) (Heparin Vial(*)) 5,000 units SUBCUT Q8HR [facility] Last Admin: 04/10/19 05:13 Dose: Not Given Sodium Chloride (Ns 0.9% 1000 Ml) 1,000 mls @ 75 mls/hr IV PER RATE [facility] Last Admin: 04/10/19 04:35 Dose: 75 mls/hr Mometasone Furoate/Formoterol Fumar (Dulera 200/5 Mdi*) 1 puff INH BID [facility] Morphine Sulfate (Morphine Inj (Syringe))*) 2 mg IV Q4H PRN PRN Reason: PAIN - MILD Last Admin: 04/10/19 03:53 Dose: 2 mg Non-Formulary Medication (Magnesium [Magnesium]) 30 mg PO DAILY PRN PRN Reason: HEADACHE Senna (Senokot 8.6 Mg Tab*) 1 tab PO BID [facility] Vitamin B Complex/Vitamin E (B Complex-50*) 1 tab PO DAILY [facility] Vital Signs - 8 hr 04/10/19 04/10/19 04/10/19 00:47 03:41 03:45 Temperature 0 F 98.4 F Pulse Rate 0 98 Respiratory 18 0 16 Rate Blood Pressure 0/0 135/87 (mmHg) O2 Sat by Pulse 0 99 Oximetry 04/10/19 04/10/19 04/10/19 03:53 05:14 07:37 Temperature 98.4 F Pulse Rate 81 Respiratory 16 16 16 Rate Blood Pressure 132/85 (mmHg) O2 Sat by Pulse 100 Oximetry Oxygen Devices in Use Now: None Appearance: she looks medicated but able to carry a conversation and gives her history Eyes: No Scleral Icterus, PERRLA Ears/Nose/Mouth/Throat: NL Teeth, Lips, Gums, Mucous Membranes Moist Neck: NL Appearance and Movements; NL JVP, Trachea Midline Respiratory: Symmetrical Chest Expansion and Respiratory Effort, Clear to Auscultation, Clear to Percussion Cardiovascular: NL Sounds; No Murmurs; No JVD, No Edema Abdominal: NL Sounds; No Tenderness; No Distention Lymphatic: No Cervical Adenopathy, No Inguinal Adenopathy Extremities: - - splinted left arm Skin: No Rash or Ulcers, No Nodules or Sclerosis Neurological: Alert and Oriented x 3, NL Muscle Strength and Tone Result Diagrams: 04/10/19 02:41 04/10/19 02:41 Assess/Plan/Problems-Billing Assessment: - Patient Problems (1) Arm fracture Current Visit: Yes Status: Acute Comment: acute left arm fracture ortho consulted and will see patient today. Planning for surgery once the inflammation around the frax settles prn pain medications (2) Asthma Current Visit: Yes Status: Acute Code(s): J45.909 - UNSPECIFIED ASTHMA, UNCOMPLICATED SNOMED Code(s): 176040466 Comment: cont home inhalers (3) History of migraine Current Visit: Yes Status: Acute Code(s): Z86.69 - PERSONAL HISTORY OF DIS OF THE NERVOUS SYS AND SENSE ORGANS SNOMED Code(s): 313268195 Comment: Pt said magnesium and vitamins that she takes at home helps control her migraine (4) DVT prophylaxis Current Visit: Yes Status: Acute Code(s): Z29.9 - ENCOUNTER FOR PROPHYLACTIC MEASURES, UNSPECIFIED SNOMED Code(s): 111452579 Comment: heparin sc (5) Full code status Current Visit: Yes Status: Acute Code(s): Z78.9 - OTHER SPECIFIED HEALTH STATUS SNOMED Code(s): 910490656
[2019-04-10] MEDS: Mometasone/Formoter 200/5 MDI INH SCH ×2 (09:07→20:50)
[2019-04-10] MEDS: Cholecalciferol TAB* 1000 UNITS PO SCH (09:16)
[2019-04-10] MEDS: Senna TAB 8.6 mg* TAB PO SCH ×2 (09:16→20:47)
[2019-04-10] MEDS: Vitamin B Complex TAB PO SCH (10:26)
[2019-04-10] MEDS ORDERED: Cetirizine* 10 MG TAB PO PRN (11:42)
[2019-04-10] MEDS: oxyCODONE/Acetamin 5/325 MG* TAB PO PRN ×2 (12:26→19:43)
--- NOTE | 2019-04-10 16:30 | PN ---
Subjective Date of Service: 04/10/19 Interval History: Patient states that her pain is not well controlled. Even minimal movement of her fingers gives her severe pain, she reports. She states concern that she could not care for herself at home because she needed 3 people to help her get to the toilet. She additional states she doesn't have a bed at home due to short term housing; she has been sleeping on the couch. She denies abd pain, chest pain, difficulty breathing, radiating pain down her arm. She has c/o some muscle spasms in her left arm. Objective Active Medications: Acetaminophen (Tylenol Tab*) 975 mg PO Q8H PRN PRN Reason: PAIN - MILD Albuterol (Ventolin Hfa Inhaler*) 2 puff INH Q4HR PRN PRN Reason: SHORTNESS OF BREATH Cetirizine HCl (Zyrtec*) 10 mg PO DAILY PRN PRN Reason: Allergy Symptoms Cholecalciferol (Vitamin D Tab*) 1,000 units PO DAILY [facility] Last Admin: 04/10/19 09:16 Dose: 1,000 units Cyanocobalamin (Vitamin B12 Tab*) 500 mcg PO DAILY [facility] Cyclobenzaprine HCl (Flexeril Tab*) 10 mg PO BID PRN PRN Reason: muscle spasms Heparin Sodium (Porcine) (Heparin Vial(*)) 5,000 units SUBCUT Q8HR [facility] Last Admin: 04/10/19 14:22 Dose: Not Given Ketorolac Tromethamine (Toradol Inj*) 15 mg IV PUSH Q6H [facility] Stop: 04/11/19 22:01 Mometasone Furoate/Formoterol Fumar (Dulera 200/5 Mdi*) 1 puff INH BID [facility] Last Admin: 04/10/19 09:07 Dose: Not Given Morphine Sulfate (Morphine Inj (Syringe))*) 2 mg IV Q4H PRN PRN Reason: pain - breakthrough Multivitamins/Minerals (Theragran/Minerals Tab*) 1 tab PO DAILY [facility] Non-Formulary Medication (Magnesium [Magnesium]) 30 mg PO DAILY PRN PRN Reason: HEADACHE Oxycodone/Acetaminophen (Percocet 5/325 Tab*) 1 tab PO Q3H PRN PRN Reason: PAIN - MODERATE Oxycodone/Acetaminophen (Percocet 5/325 Tab*) 2 tab PO Q4H PRN PRN Reason: PAIN - SEVERE Last Admin: 04/10/19 12:26 Dose: 2 tab Senna (Senokot 8.6 Mg Tab*) 1 tab PO BID [facility] Last Admin: 04/10/19 09:16 Dose: Not Given Vitamin B Complex/Vitamin E (B Complex-50*) 1 tab PO DAILY [facility] Last Admin: 04/10/19 10:26 Dose: 1 tab Vital Signs - 8 hr 04/10/19 04/10/19 04/10/19 09:16 10:15 10:28 Temperature Pulse Rate Respiratory 20 18 18 Rate Blood Pressure (mmHg) O2 Sat by Pulse Oximetry 04/10/19 04/10/19 04/10/19 11:42 12:26 14:22 Temperature 98 F Pulse Rate 88 Respiratory 16 16 16 Rate Blood Pressure 130/84 (mmHg) O2 Sat by Pulse 98 Oximetry 04/10/19 15:30 Temperature 98.3 F Pulse Rate 61 Respiratory 18 Rate Blood Pressure 135/83 (mmHg) O2 Sat by Pulse 97 Oximetry Oxygen Devices in Use Now: None Appearance: Obese, middle aged white female, laying in bed appearing comfortable and in NAD Eyes: No Scleral Icterus, - - PERRL Ears/Nose/Mouth/Throat: Mucous Membranes Moist Neck: NL Appearance and Movements; NL JVP Respiratory: Symmetrical Chest Expansion and Respiratory Effort, Clear to Auscultation Cardiovascular: NL Sounds; No Murmurs; No JVD, RRR Abdominal: - - abd soft, nontender, nondistended Extremities: No Edema, No Clubbing, Cyanosis, - - able to minimally move left fingers but restricted due to pain Skin: No Rash or Ulcers Neurological: Alert and Oriented x 3, - - sensation to light touch intact in bilateral UEs Result Diagrams: 04/10/19 02:41 04/10/19 02:41 Assess/Plan/Problems-Billing Assessment: 48 yo white female with PMHx asthma presents with left proximal ulna and radius fractures after a mechanical fall. - Patient Problems (1) Elbow fracture, left Current Visit: Yes Status: Acute Code(s): S42.402A - UNSP FRACTURE OF LOWER END OF LEFT HUMERUS, INIT FOR CLOS FX SNOMED Code(s): 579397087 Comment: -left proximal ulnar and radial fractures -plan for ortho to operate 04/14/19 outpatient -continue pain control, will reassess tomorrow -patient expresses concerns for caring for herself at home. SW, PT, and OT consulted (2) Asthma Current Visit: Yes Status: Acute Code(s): J45.909 - UNSPECIFIED ASTHMA, UNCOMPLICATED SNOMED Code(s): 861194869 Comment: -cont home inhalers (3) DVT prophylaxis Current Visit: Yes Status: Acute Code(s): Z29.9 - ENCOUNTER FOR PROPHYLACTIC MEASURES, UNSPECIFIED SNOMED Code(s): 147360439 Comment: -lovenox (4) Full code status Current Visit: Yes Status: Acute Code(s): Z78.9 - OTHER SPECIFIED HEALTH STATUS SNOMED Code(s): 996950181 Status and Disposition: anticipate d/c to home tomorrow pending care plan at home and pain control
[2019-04-10] MEDS ORDERED: Polyethylene Glycol 3350* 17 GM PACKET PO PRN (16:34)
[2019-04-10] MEDS: Ketorolac INJ* 15 MG/ML 1 ML VIAL IV PUSH SCH ×2 (17:32→21:55)
[2019-04-10] MEDS: Enoxaparin(*) 40 MG/0.4 ML SYR SUBCUT SCH (17:33)
[2019-04-11] MEDS: Ketorolac INJ* 15 MG/ML 1 ML VIAL IV PUSH SCH ×4 (03:28→21:39)
[2019-04-11 06:44] LABS: INR 1.03 (0.82-1.09)
[2019-04-11] MEDS: Mometasone/Formoter 200/5 MDI INH SCH ×2 (08:07→21:00)
[2019-04-11] MEDS: Senna TAB 8.6 mg* TAB PO SCH ×2 (08:29→21:38)
[2019-04-11] MEDS: Multivitamins/Minerals TAB PO SCH (08:29)
[2019-04-11] MEDS: Cyanocobalamin TAB* 500 MCG PO SCH (08:29)
[2019-04-11] MEDS: Cholecalciferol TAB* 1000 UNITS PO SCH (08:29)
[2019-04-11] MEDS: oxyCODONE/Acetamin 5/325 MG* TAB PO PRN ×4 (08:30→21:54)
[2019-04-11] MEDS: Vitamin B Complex TAB PO SCH (08:35)
--- NOTE | 2019-04-11 09:46 | CONSULT ---
Consult Consult: I just dictated an orthopaedics consult note on this patient. Consult was requested yesterday 04/10/19 and I saw the patient bedside. I spoke with Hospitalist regarding my recommendations, but I detail them in full in my note. The patient has a complex left elbow fracture- a comminuted, segmental, displaced proximal ulna fracture (fortunately extra-articular to the ulnohumeral articulation) and a comminuted, displaced radial head fracture with radial head subluxation. She required open reduction internal fixation surgery. The orthopedics plan, as discussed with the patient and Hospitalist on 04/10/19 , and detailed in my note (awaiting experimental machinist) is: 1. Continue splint. Sling as needed. 2. Pain control as needed with narcotics. 3. Surgery on 04/14/19 by Drs. Cotton & Ascencion at [facility] 4. If it is feasible, the patient should come to Dr. Cotton's clinic on in the afternoon to see Drs. Cotton & Ascencion 5. Dispo per Hospitalist 6. If Hospitalist could comment on patient optimization/clearance for surgery, that would be appreciated. Thanks for the consult!
[2019-04-11] MEDS: Morphine INJ* 2 MG/ML 1 ML SYRINGE (TWO MG - NEW SYRINGE VERSION) IV PRN (11:18)
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
[2019-04-11] MEDS: Cyclobenzaprine TAB* 10 MG PO PRN (16:34)
[2019-04-11] MEDS: Enoxaparin(*) 40 MG/0.4 ML SYR SUBCUT SCH (16:37)
--- NOTE | 2019-04-11 16:52 | PN ---
Subjective Date of Service: 04/11/19 Interval History: Patient seen by CHERI yesterday and declined assistance with her home life. Today patient tells me she is concerned about returning home due to her furniture not being optimal for positioning in the setting of pain. Patient states her pain is much more well controlled today but specifically expresses concern that she has difficulty getting to the toilet on her own. She understands that she will not be free of pain. She denies numbness/tingling in her upper extremities. Reports right wrist pain. Denies difficulty breathing, chest pain, fever/chills, abd pain. Objective Active Medications: Acetaminophen (Tylenol Tab*) 975 mg PO Q8H PRN PRN Reason: PAIN - MILD Albuterol (Ventolin Hfa Inhaler*) 2 puff INH Q4HR PRN PRN Reason: SHORTNESS OF BREATH Cetirizine HCl (Zyrtec*) 10 mg PO DAILY PRN PRN Reason: Allergy Symptoms Cholecalciferol (Vitamin D Tab*) 1,000 units PO DAILY [facility] Last Admin: 04/11/19 08:29 Dose: 1,000 units Cyanocobalamin (Vitamin B12 Tab*) 500 mcg PO DAILY [facility] Last Admin: 04/11/19 08:29 Dose: 500 mcg Cyclobenzaprine HCl (Flexeril Tab*) 10 mg PO BID PRN PRN Reason: muscle spasms Last Admin: 04/11/19 16:34 Dose: 10 mg Enoxaparin Sodium (Lovenox(*)) 40 mg SUBCUT Q24H [facility] Last Admin: 04/11/19 16:37 Dose: Not Given Ketorolac Tromethamine (Toradol Inj*) 15 mg IV PUSH Q6H [facility] Stop: 04/11/19 22:01 Last Admin: 04/11/19 16:10 Dose: 15 mg Mometasone Furoate/Formoterol Fumar (Dulera 200/5 Mdi*) 1 puff INH BID [facility] Last Admin: 04/11/19 08:07 Dose: Not Given Morphine Sulfate (Morphine Inj (Syringe))*) 2 mg IV Q4H PRN PRN Reason: pain - breakthrough Last Admin: 04/11/19 11:18 Dose: 2 mg Multivitamins/Minerals (Theragran/Minerals Tab*) 1 tab PO DAILY [facility] Last Admin: 04/11/19 08:29 Dose: 1 tab Non-Formulary Medication (Magnesium [Magnesium]) 30 mg PO DAILY PRN PRN Reason: HEADACHE Oxycodone/Acetaminophen (Percocet 5/325 Tab*) 1 tab PO Q3H PRN PRN Reason: PAIN - MODERATE Last Admin: 04/11/19 08:30 Dose: 1 tab Oxycodone/Acetaminophen (Percocet 5/325 Tab*) 2 tab PO Q4H PRN PRN Reason: PAIN - SEVERE Last Admin: 04/11/19 13:05 Dose: 2 tab Polyethylene Glycol/Electrolytes (Miralax*) 17 gm PO DAILY PRN PRN Reason: CONSTIPATION Last Admin: 04/10/19 17:32 Dose: 17 gm Senna (Senokot 8.6 Mg Tab*) 1 tab PO BID [facility] Last Admin: 04/11/19 08:29 Dose: Not Given Vitamin B Complex/Vitamin E (B Complex-50*) 1 tab PO DAILY [facility] Last Admin: 04/11/19 08:35 Dose: 1 tab Vital Signs - 8 hr 04/11/19 04/11/19 04/11/19 10:13 11:18 11:46 Temperature 98.1 F Pulse Rate 74 Respiratory 20 19 16 Rate Blood Pressure 120/86 (mmHg) O2 Sat by Pulse 96 Oximetry 04/11/19 04/11/19 04/11/19 12:05 13:05 15:50 Temperature Pulse Rate Respiratory 19 18 18 Rate Blood Pressure (mmHg) O2 Sat by Pulse Oximetry 04/11/19 04/11/19 16:34 16:35 Temperature 97.2 F Pulse Rate 84 Respiratory 17 16 Rate Blood Pressure 114/73 (mmHg) O2 Sat by Pulse 96 Oximetry Oxygen Devices in Use Now: None Appearance: Obese white female, laying upright in hospital bed, appearing comfortable and in NAD Eyes: No Scleral Icterus, - - PERRL Ears/Nose/Mouth/Throat: Mucous Membranes Moist Neck: NL Appearance and Movements; NL JVP Respiratory: Symmetrical Chest Expansion and Respiratory Effort, Clear to Auscultation Cardiovascular: NL Sounds; No Murmurs; No JVD, RRR Abdominal: - - abd soft, nontender, nondistended Extremities: No Edema, No Clubbing, Cyanosis, - - left UE splinted and in sling ; right wrist and elbow full ROM; point tenderness to right thenar eminence and at distal right radius Skin: No Rash or Ulcers Neurological: Alert and Oriented x 3, NL Sensation Result Diagrams: 04/10/19 02:41 04/10/19 02:41 Assess/Plan/Problems-Billing Assessment: 48 yo white female with PMHx asthma presents with left proximal ulna and radius fractures after a mechanical fall. - Patient Problems (1) Elbow fracture, left Current Visit: Yes Status: Acute Code(s): S42.402A - UNSP FRACTURE OF LOWER END OF LEFT HUMERUS, INIT FOR CLOS FX SNOMED Code(s): 870815466 Comment: -left proximal ulnar and radial fractures -plan for ortho to operate 04/14/19 outpatient -continue pain control -patient expresses concerns for caring for herself at home. SW, PT, and OT consulted. Patient refused PT and declined any needs from SW -patient is medically optimized for surgery. She has an RCRI risk score of 0 points, indicating 3.9% 30-day risk of , IL, or cardiac arrest. (2) Asthma Current Visit: Yes Status: Acute Code(s): J45.909 - UNSPECIFIED ASTHMA, UNCOMPLICATED SNOMED Code(s): 610079887 Comment: -cont home inhalers (3) Right wrist pain Current Visit: Yes Status: Acute Code(s): M25.531 - PAIN IN RIGHT WRIST SNOMED Code(s): 64855774 Comment: -no fracture per x-rays -patient fell on outstretched hand -pain is controlled with ice and prn pain meds (4) DVT prophylaxis Current Visit: Yes Status: Acute Code(s): Z29.9 - ENCOUNTER FOR PROPHYLACTIC MEASURES, UNSPECIFIED SNOMED Code(s): 208142551 Comment: -lovenox (5) Full code status Current Visit: Yes Status: Acute Code(s): Z78.9 - OTHER SPECIFIED HEALTH STATUS SNOMED Code(s): 979477561 Status and Disposition: anticipate d/c to home tomorrow AM which is when patient is able to arrange a ride
--- NOTE | 2019-04-11 21:53 | DS ---
ADDENDUM NOW INCLUDED ON THIS REPORT CC: Lakeshia Cole MD; Dr. Vegas; Dr. Cotton * DISCHARGE SUMMARY: DATE OF ADMISSION: 04/10/19 DATE OF ANTICIPATED DISCHARGE: 04/12/19 PROVIDER: SMITA Paredes PRIMARY CARE PROVIDER: Lakeshia Cole MD. CONSULTING ORTHOPEDIST: Dr. Vegas. ATTENDING PROVIDER: Sigrid Murdock MD * (DICTATED BY SMITA PAREDES) PRIMARY DIAGNOSIS: Left ulnar and radial fractures. SECONDARY DIAGNOSES: 1. Asthma. 2. Posttraumatic stress disorder. PERTINENT LAB DATA AND STUDIES: Upper extremity CT on 04/09/19, acute traumatic proximal radial and ulnar fractures. Recommend left elbow radiographs. Elbow x-ray on 04/10/19. Impression: Comminuted fractures of proximal radius and ulna. There is displacement of the fragment of the radial head. There is angulation of the proximal ulnar fracture, which is somewhat impacted and overriding. Right wrist x-ray on 04/11/19. Impression: Normal radiograph of the right wrist. INR on 04/11/19, 1.03. HISTORY OF PRESENT ILLNESS/HOSPITAL COURSE: Shanetlle Palencia is a 48-year-old white female with a past medical history significant for asthma and posttraumatic stress disorder, who presented to the emergency department after a fall on 04/09. The patient was found to have fractures as described above. She was ultimately admitted to the hospital for pain control. During her hospital stay , the patient made comments of not feeling adequately equipped to go home given her lack of a bed and lack of wanting her friends to know where she wants to live and social work was consulted. When the patient was seen by social work, it seemed that she did not want any interventions through social work. Additionally, during the hospital stay she refused to see physical therapy. By 04/11/19, she did have much improved control of her pain with oxycodone, Toradol and Flexeril; however, she continually had hesitation about leaving. Ultimately, she did agree that it would be reasonable to have a friend take her home on the morning of 04/12/19. The discharge summary is dictated in advance in anticipation of this discharge. It was explained to the patient that it would be further risk to stay in the hospital and there would be greater risk of infection and will be safer at home taking oral medications for pain. Morphine was ordered during the hospital stay; however, she was very infrequently using it. She was splinted in the emergency department on the left upper extremity and provided with a sling. The patient was neurovascularly intact in the left lower extremity. On 04/11/19, she was complaining of wrist pain and a fracture was ruled out and continuing on pain control and ice to the right wrist was recommended. This is expected as she fell on both outstretched arms when she tripped causing her fall to lead to her left lower extremity fractures. DISCHARGE PLAN: Diet: Regular, unrestricted diet. Activities: Maintain left upper extremity in splint and sling. The patient has an outpatient orthopedic consult appointment scheduled with Dr. Cotton and Dr. Vegas for Saturday04/13/19. Her outpatient surgery for ORIF is already scheduled for 04/14/19 at [facility] with Dr. Cotton. The patient was advised to return to the emergency department if she has numbness, tingling or sudden weakness of her lower extremity, fever, chills, loss of consciousness difficulty breathing. She was advised to be utilize caution of not taking Flexeril at the same time as oxycodone. Her plan is for her friend to drive her home and potentially stay in one of her friend's house as she needs additional help. DISCHARGE MEDICATIONS: New medications: 1. Oxycodone 975 mg p.o. q.8 hours p.r.n. pain. 2. Ibuprofen 800 mg p.o. q.8 hours p.r.n. pain. 3. MiraLAX 17 g p.o. daily p.r.n. constipation. 4. Flexeril 10 mg p.o. b.i.d. p.r.n. muscle spasm. 5. Oxycodone/acetaminophen 5/325 mg 1 to 2 tabs p.o. q.4 hours p.r.n. severe pain, maximum daily dose 8 tabs. Continued home medications: 1. Vitamin C 1000 mg p.o. daily. 2. Advair Diskus 1 puff inhaled daily. 3. Multivitamin 1 tab p.o. daily. 4. Riboflavin 100 mg p.o. daily. 5. Vitamin D3 1000 units p.o. daily. 6. Vitamin B12 500 mcg p.o. daily. 7. Ventolin 2 puffs inhaled q.4 hours p.r.n. shortness of breath or wheezing. 8. Magnesium 30 mg p.o. daily. 9. Loratadine 10 mg p.o. daily p.r.n. shortness of breath. CONDITION ON DISCHARGE: Stable. DISPOSITION: Home. TIME SPENT: Approximately 45 minutes were spent on this discharge, approximately half that time was spent at bedside evaluating the patient, discussing the plan of care and reassuring her on her plan for discharge. SMITA PAREDES ADDENDUM TO DISCHARGE SUMMARY: DATE OF ACTUAL DISCHARGE: 04/13/19 The original discharge summary was dictated in advance and the patient had initially agreed to discharge on 04/12/19; however, was then refusing her discharge and therefore case management did explain to her she needed to leave; however she did still not leave that day. Director of case management was involved on 04/13/19 and ultimately patient did agree to leave by private vehicle to then report to her appointment with Dr. Cotton in the office today. Her scheduled appointment is still standing with Dr. Cotton and her scheduled surgery is tomorrow at [facility]. There were no further changes to her plan and she otherwise had an unremarkable stay beyond the hospital course already written in the prior discharge summary. The patient ultimately did agree to work with physical therapy on the day of discharge and Physical Therapy agreed that Occupational Therapy need to see the patient, which was previously ordered several days prior and for unclear reasons this Occupational Therapy is still yet to see this patient. However, nursing did head wrestling coach the patient very much on using equipment on how to wipe herself with her dominant right-arm which is uninjured and the patient feels comfortable that she could do this at home. CONDITION ON DISCHARGE: Stable. DISPOSITION: Home. SMITA PAREDES [id number]/CPS #: [id number]/CPS #: [id number] [facility] MED[facility] CENTERBobby
[2019-04-12] MEDS: oxyCODONE/Acetamin 5/325 MG* TAB PO PRN ×6 (03:25→23:26)
[2019-04-12] MEDS: Cyclobenzaprine TAB* 10 MG PO PRN ×2 (05:33→18:14)
[2019-04-12] MEDS: Morphine INJ* 2 MG/ML 1 ML SYRINGE (TWO MG - NEW SYRINGE VERSION) IV PRN ×3 (05:45→14:28)
[2019-04-12] MEDS: Mometasone/Formoter 200/5 MDI INH SCH ×2 (07:18→19:39)
[2019-04-12] MEDS: Multivitamins/Minerals TAB PO SCH (08:58)
[2019-04-12] MEDS: Cyanocobalamin TAB* 500 MCG PO SCH (08:59)
[2019-04-12] MEDS: Vitamin B Complex TAB PO SCH (08:59)
[2019-04-12] MEDS: Senna TAB 8.6 mg* TAB PO SCH ×2 (09:02→21:20)
[2019-04-12] MEDS: Cholecalciferol TAB* 1000 UNITS PO SCH (09:02)
--- NOTE | 2019-04-12 10:39 | PN ---
Progress Note - Progress Note Date of Service: 04/12/19 SOAP: Subjective: resting comfortably in bed, pain improved since left UE placed in new sling Objective: Vital Signs Temp Pulse Resp BP Pulse Ox 97.9 F 75 16 117/65 97 04/12/19 07:15 04/12/19 07:15 04/12/19 10:35 04/12/19 07:15 04/12/19 07:15 Laboratory Last Values WBC 8.2 10^3/uL (3.5-10.8) 04/10/19 02:41 RBC 4.87 10^6 /uL (3.70-4.87) 04/10/19 02:41 Hgb 14.2 g/dL (12.0-16.0) 04/10/19 02:41 Hct 42 % (35-47) 04/10/19 02:41 MCV 86 fL (80-97) 04/10/19 02:41 MCH 29 pg (27-31) 04/10/19 02:41 MCHC 34 g/dL (31-36) 04/10/19 02:41 RDW 14 % (10-15) 04/10/19 02:41 Plt Count 349 10^3/uL (150-450) 04/10/19 02:41 MPV 6.4 fL (7.4-10.4) L 04/10/19 02:41 INR (Anticoag Therapy) 1.03 (0.82-1.09) 04/11/19 06:25 Sodium 139 mmol/L (135-145) 04/10/19 02:41 Potassium 3.9 mmol/L (3.5-5.0) 04/10/19 02:41 Chloride 106 mmol/L (101-111) 04/10/19 02:41 Carbon Dioxide 25 mmol/L (22-32) 04/10/19 02:41 Anion Gap 8 mmol/L (2-11) 04/10/19 02:41 BUN 6 mg/dL (6-24) 04/10/19 02:41 Creatinine 0.76 mg/dL (0.51-0.95) 04/10/19 02:41 Est GFR ( Amer) 97.9 (>60) 04/10/19 02:41 Est GFR (Non-Af Amer) 80.9 (>60) 04/10/19 02:41 BUN/Creatinine Ratio 7.9 (8-20) L 04/10/19 02:41 Glucose 125 mg/dL (70-100) H 04/10/19 02:41 Calcium 8.7 mg/dL (8.6-10.3) 04/10/19 02:41 PE: ASIM NVI Assessment: left elbow fracture Plan: 1) LUE remain in sling for comfort 2) NWB LUE 3) Plan to D/C home today, Appt with Lula Saturday for pre-op visit and surgery scheduled Saturday
--- NOTE | 2019-04-12 15:59 | PN ---
Subjective Date of Service: 04/12/19 Interval History: Patient reports the shoulder immobilizer sling has far improved her pain controlled. Patient refusing discharge this morning. Case management involved to notify patient of discharge appeal process. Patient denies numbness/tingling/weakness of arm, chest pain, difficulty breathing. Objective Active Medications: Acetaminophen (Tylenol Tab*) 975 mg PO Q8H PRN PRN Reason: PAIN - MILD Albuterol (Ventolin Hfa Inhaler*) 2 puff INH Q4HR PRN PRN Reason: SHORTNESS OF BREATH Cetirizine HCl (Zyrtec*) 10 mg PO DAILY PRN PRN Reason: Allergy Symptoms Cholecalciferol (Vitamin D Tab*) 1,000 units PO DAILY [facility] Last Admin: 04/12/19 09:02 Dose: 1,000 units Cyanocobalamin (Vitamin B12 Tab*) 500 mcg PO DAILY [facility] Last Admin: 04/12/19 08:59 Dose: 500 mcg Cyclobenzaprine HCl (Flexeril Tab*) 10 mg PO BID PRN PRN Reason: muscle spasms Last Admin: 04/12/19 05:33 Dose: 10 mg Enoxaparin Sodium (Lovenox(*)) 40 mg SUBCUT Q24H [facility] Last Admin: 04/11/19 16:37 Dose: Not Given Mometasone Furoate/Formoterol Fumar (Dulera 200/5 Mdi*) 1 puff INH BID [facility] Last Admin: 04/12/19 07:18 Dose: Not Given Morphine Sulfate (Morphine Inj (Syringe))*) 2 mg IV Q4H PRN PRN Reason: pain - breakthrough Last Admin: 04/12/19 14:28 Dose: 2 mg Multivitamins/Minerals (Theragran/Minerals Tab*) 1 tab PO DAILY [facility] Last Admin: 04/12/19 08:58 Dose: 1 tab Non-Formulary Medication (Magnesium [Magnesium]) 30 mg PO DAILY PRN PRN Reason: HEADACHE Oxycodone/Acetaminophen (Percocet 5/325 Tab*) 1 tab PO Q3H PRN PRN Reason: PAIN - MODERATE Last Admin: 04/12/19 12:02 Dose: 1 tab Oxycodone/Acetaminophen (Percocet 5/325 Tab*) 2 tab PO Q4H PRN PRN Reason: PAIN - SEVERE Last Admin: 04/12/19 14:29 Dose: 2 tab Polyethylene Glycol/Electrolytes (Miralax*) 17 gm PO DAILY PRN PRN Reason: CONSTIPATION Last Admin: 04/10/19 17:32 Dose: 17 gm Senna (Senokot 8.6 Mg Tab*) 1 tab PO BID [facility] Last Admin: 04/12/19 09:02 Dose: 1 tab Vitamin B Complex/Vitamin E (B Complex-50*) 1 tab PO DAILY [facility] Last Admin: 04/12/19 08:59 Dose: 1 tab Vital Signs - 8 hr 04/12/19 04/12/19 04/12/19 08:00 08:50 08:57 Temperature Pulse Rate Respiratory 18 18 20 Rate Blood Pressure (mmHg) O2 Sat by Pulse Oximetry 04/12/19 04/12/19 04/12/19 09:59 10:35 11:15 Temperature 97.9 F Pulse Rate 66 Respiratory 16 16 16 Rate Blood Pressure 117/74 (mmHg) O2 Sat by Pulse 97 Oximetry 04/12/19 04/12/19 04/12/19 12:02 14:28 14:29 Temperature Pulse Rate Respiratory 20 20 20 Rate Blood Pressure (mmHg) O2 Sat by Pulse Oximetry 04/12/19 14:32 Temperature Pulse Rate Respiratory 16 Rate Blood Pressure (mmHg) O2 Sat by Pulse Oximetry Oxygen Devices in Use Now: None Appearance: WD WN white female, laying upright in bed, appearing comfortable in NAD Eyes: No Scleral Icterus, - - PERRL Ears/Nose/Mouth/Throat: Mucous Membranes Moist Neck: NL Appearance and Movements; NL JVP Respiratory: Symmetrical Chest Expansion and Respiratory Effort, Clear to Auscultation Cardiovascular: NL Sounds; No Murmurs; No JVD, RRR Abdominal: - - abd soft, nontender, nondistended Extremities: No Edema, No Clubbing, Cyanosis, - - LUE in splint and sling; minimal ecchymosis to right thenar eminence Skin: No Rash or Ulcers Neurological: Alert and Oriented x 3, NL Sensation Result Diagrams: 04/10/19 02:41 04/10/19 02:41 Assess/Plan/Problems-Billing Assessment: 48 yo white female with PMHx asthma presents with left proximal ulna and radius fractures after a mechanical fall. - Patient Problems (1) Elbow fracture, left Current Visit: Yes Status: Acute Code(s): S42.402A - UNSP FRACTURE OF LOWER END OF LEFT HUMERUS, INIT FOR CLOS FX SNOMED Code(s): 573845001 Comment: -left proximal ulnar and radial fractures -plan for ortho to operate 04/14/19 outpatient -continue pain control -patient expresses concerns for caring for herself at home. SW, PT, and OT consulted. Patient refused PT and declined any needs from SW on 04/10/19. Is agreeable to seeing both providers tomorrow -patient has poor coping mechanisms and is anxious about dealing with pain at home; has been controlled in the hospital -patient is medically optimized for surgery. She has an RCRI risk score of 0 points, indicating 3.9% 30-day risk of , NC, or cardiac arrest. (2) Asthma Current Visit: Yes Status: Acute Code(s): J45.909 - UNSPECIFIED ASTHMA, UNCOMPLICATED SNOMED Code(s): 068824238 Comment: -cont home inhalers (3) Right wrist pain Current Visit: Yes Status: Acute Code(s): M25.531 - PAIN IN RIGHT WRIST SNOMED Code(s): 37621853 Comment: -no fracture per x-rays -patient fell on outstretched hand -pain is controlled with ice and prn pain meds (4) DVT prophylaxis Current Visit: Yes Status: Acute Code(s): Z29.9 - ENCOUNTER FOR PROPHYLACTIC MEASURES, UNSPECIFIED SNOMED Code(s): 208248393 Comment: -lovenox (5) Full code status Current Visit: Yes Status: Acute Code(s): Z78.9 - OTHER SPECIFIED HEALTH STATUS SNOMED Code(s): 971450390 Status and Disposition: Patient does not meet inpatient criteria and has refused her discharge. Please see further notes from case management. Patient tells me she would like to stay until tomorrow and could arrange a ride home to get to Dr. Cotton's appointment and then this friend could drive her to [facility] Saturday for surgery.
[2019-04-12] MEDS: Enoxaparin(*) 40 MG/0.4 ML SYR SUBCUT SCH (16:20)
[2019-04-13] MEDS: Mometasone/Formoter 200/5 MDI INH SCH (07:43)
[2019-04-13] MEDS: Senna TAB 8.6 mg* TAB PO SCH (07:51)
[2019-04-13] MEDS: Cholecalciferol TAB* 1000 UNITS PO SCH (07:51)
[2019-04-13] MEDS: Cyanocobalamin TAB* 500 MCG PO SCH (07:51)
[2019-04-13] MEDS: Multivitamins/Minerals TAB PO SCH (07:51)
[2019-04-13] MEDS: Vitamin B Complex TAB PO SCH (07:51)
[2019-04-13] MEDS: Cyclobenzaprine TAB* 10 MG PO PRN (07:51)
[2019-04-13] MEDS: oxyCODONE/Acetamin 5/325 MG* TAB PO PRN ×2 (07:52→13:00)
[2019-04-13] MEDS: Morphine INJ* 2 MG/ML 1 ML SYRINGE (TWO MG - NEW SYRINGE VERSION) IV PRN (10:30)
[2019-04-13 11:14] VITALS: BP 127/80
--- NOTE | 2019-04-14 00:03 | DS ---
DISCHARGE SUMMARY: DATE OF DISCHARGE: 04/13/19 ADDENDUM: The original discharge summary was dictated in advance and the patient had initially agreed to discharge on 04/12/19; however, was then refusing her discharge and therefore case management did explain to her she needed to leave; however she did still not leave that day. Director of case management was involved on 04/13/19 and ultimately patient did agree to leave by private vehicle to then report to her appointment with Dr. Cotton in the office today. Her scheduled appointment is still standing with Dr. Cotton and her scheduled surgery is tomorrow at [facility]. There were no further changes to her plan and she otherwise had an unremarkable stay. The history was already dictated on the previous discharge summary. The patient ultimately did agree to work with physical therapy on the day of discharge and Physical Therapy agreed that Occupational Therapy need to see the patient, which was previously ordered several days prior and for unclear reasons this Occupational Therapy is still yet to see this patient. However, nursing did curriculum coach the patient very much on using equipment on how to wipe herself with her dominant right-arm which is uninjured and the patient feels comfortable that she could do this at home. The patient is discharged stable. DISPOSITION: Home. SMITA TRAN [id number]/[facility] #: [id number] MTDD
== END 2019-04-13 14:34 | disposition home or self-care (01) ==
LOC: ED 18:00 → INTOOBSV 04-10 03:13 → MEDTELE 04-10 03:13
PROVIDERS: ADMIT Student in an Organized Health Care Education/Training Program; ATTEND Internal Medicine
DX: S52.102A Unspecified fracture of upper end of left radius, initial encounter for closed fracture (principal); S52.002A Unspecified fracture of upper end of left ulna, initial encounter for closed fracture; W01.0XXA Fall on same level from slipping, tripping and stumbling without subsequent striking against object, initial encounter; Y92.524 Gas station as the place of occurrence of the external cause; J45.909 Unspecified asthma, uncomplicated; F43.10 Post-traumatic stress disorder, unspecified; F41.9 Anxiety disorder, unspecified; M25.531 Pain in right wrist; Z86.69 Personal history of other diseases of the nervous system and sense organs; Z79.899 Other long term (current) drug therapy
CPT/HCPCS: 36415; 80048; 85027; 85610; 96361; 96372; 96374; 96375; 96376; 99283; A9270-GY; G0378; J1885; J2250; J2270; J3010

== ENCOUNTER 2019-04-14 11:11 | Day surgery (SDC) | payer OTHER ==
[~2019-04-14 11:11] MED LIST: Buffered Lidocaine 1% SYRIN* 1 ML/SYRINGE INTRADERM ONE; Dexamethasone IV* 4 MG/ML 1 ML (4 MG) IV SLOW PU ONE; Dexamethasone IV* 4 MG/ML 1 ML (4 MG) ONE; Famotidine IV* 10 MG/ML 2 ML (20 mg) IV ONE; Famotidine IV* 10 MG/ML 2 ML (20 mg) ONE; Lactated Ringers 1000 ML Bag* 1,000 ML IV SCH; ceFAZolin 2 GM PREMIX in ORs 2 GM/50 ML BAG ONE
[2019-04-14] MEDS ORDERED: Bupivacaine 0.5% W/EPI SDV* 30 ML VIAL ONE (12:06)
[2019-04-14] MEDS ORDERED: Bupivacaine 0.5% SDV PF* 30ML VIAL ONE (12:06)
[2019-04-14] MEDS ORDERED: Lidocaine 2% PF * 5 ML VIAL ONE (12:21)
[2019-04-14] MEDS ORDERED: Atracurium* 10 MG/ML 10 ML VIAL ONE (12:21)
[2019-04-14] MEDS ORDERED: fentaNYL* 50 MCG/ML 5 ML VIAL (250 MCG VIAL) ONE (12:21)
[2019-04-14] MEDS ORDERED: Ketorolac INJ* 30 MG/ML 1 ML VIAL ONE (12:21)
[2019-04-14] MEDS ORDERED: Dexamethasone IV* 4 MG/ML 1 ML (4 MG) ONE (12:21)
[2019-04-14] MEDS ORDERED: Midazolam* 1 MG/ML 5 ML VIAL (5 MG) ONE (12:21)
[2019-04-14] MEDS ORDERED: Propofol* 10 MG/ML 20 ML BTL ONE (12:21)
[2019-04-14] MEDS ORDERED: fentaNYL* 50 MCG/ML 2 ML VIAL (100 MCG VIAL) ONE ×3 (13:26→15:30)
[2019-04-14] MEDS ORDERED: Ondansetron INJ* 2 MG/ML VIAL IV PRN (13:38)
[2019-04-14] MEDS ORDERED: DiMENhydriNATE IV* 50 MG/ML VIAL IV PUSH PRN (13:38)
[2019-04-14] MEDS ORDERED: HYDROmorphone INJ1* 1 MG/ML SYRINGE IV PRN (13:38)
[2019-04-14] MEDS ORDERED: Scopolamine 1.5 mg* PATCH TRANSDERM PRN (13:38)
[2019-04-14] MEDS ORDERED: Naloxone* 0.4 MG/ML 1 ML VIAL IV PRN (13:38)
[2019-04-14] MEDS ORDERED: Metoprolol Tartrate IV* 1 MG/ML 5 ML VIAL ONE (14:41)
[2019-04-14] MEDS ORDERED: oxyCODONE/Acetamin 5/325 MG* TAB ONE (15:30)
[2019-04-14] MEDS: fentaNYL* 50 MCG/ML 2 ML VIAL (100 MCG VIAL) IV PRN ×2 (15:32→15:39)
[2019-04-14] MEDS: oxyCODONE/Acetamin 5/325 MG* TAB PO PRN ×2 (15:42→15:43)
[2019-04-14] MEDS ORDERED: DiMENhydriNATE IV* 50 MG/ML VIAL ONE (15:54)
[2019-04-14 17:35] VITALS: BP 131/80
--- NOTE | 2019-04-14 21:29 | OP ---
DATE OF OPERATION: 04/14/19 [facility] DATE OF : 68 SURGEON: Lulú Cotton MD ASSISTANTS: Dr. Vegas and SMITA Wood ANESTHESIA: General. PRE-OP DIAGNOSIS: [place] fracture, dislocation of the left elbow. POST-OP DIAGNOSIS: [place] fracture, dislocation of the left elbow. OPERATIVE PROCEDURE: Open reduction internal fixation of the left ulna and radial head excision. ESTIMATED BLOOD LOSS: Zero. TOURNIQUET TIME: About 100 minutes. INDICATION FOR PROCEDURE: Shantelle is a 48-year-old woman who [place] the [place] and fractured her left elbow. She has a comminuted fracture of the ulna just distal to the coronoid process as well as a comminuted radial head fracture with slight subluxation of the radius. She presents for ORIF and possible radial head excision or replacement. DESCRIPTION OF PROCEDURE: The patient was brought to the operating room and was given a general anesthetic and placed in the right lateral decubitus position with the left arm in an arm brush, well padded with a gel pad. Skin of her left upper extremity was prepped and draped in the usual sterile fashion. The upper extremity was exsanguinated and the tourniquet elevated to 250 mmHg. A posterior incision was made and we dissected sharply down to the fracture site and the subcutaneous border of the ulna. Through the fracture, we could see the fragments of radial head and these were removed and through the fracture we are also able to gain access to the radial neck. The radial neck was removed with a saw while the soft tissues were protected by the surgical tech, Tulio Vegas, with Hohmann retractors. Next, the fracture fragments were reduced and secured with an olecranon plate. There were 4 distal screw holes used and 5 proximal screw holes used to position the hardware and fracture fragments checked on the C-arm in the AP and lateral views and found to be satisfactory. The radius was in good alignment with capitellum with perhaps just a tiny bit of posterior sag, however, this was felt to be okay since the radial head was excised. The wrist joint was also visualized in rotation of the forearm and there appeared to be excellent stability of the radius and the ulna. The ulna was slightly ulna negative. The wound was copiously irrigated with saline. There was a lateral fragment that was free and not captured by the plate and this was secured with circumferential #5 Ethibond suture. The subcutaneous tissue was closed with 2-0 and 3-0 Polysorb suture and the skin with skin nora. The wound was dressed with Xeroform, 4x4, Webril, and an Campos wrap and a sling. The patient tolerated the procedure well and was brought to the recovery room in good condition. [id number]/[facility] #: [id number] MTDBobby
== END 2019-04-14 17:21 | disposition home or self-care (01) ==
LOC: OREAST 11:11
PROVIDERS: ATTEND Orthopaedic Surgery
DX: S52.272A Monteggia's fracture of left ulna, initial encounter for closed fracture (principal); W01.0XXA Fall on same level from slipping, tripping and stumbling without subsequent striking against object, initial encounter; Y92.9 Unspecified place or not applicable; Q79.60 Ehlers-Danlos syndrome, unspecified; F43.10 Post-traumatic stress disorder, unspecified; G47.33 Obstructive sleep apnea (adult) (pediatric); J45.909 Unspecified asthma, uncomplicated; F41.9 Anxiety disorder, unspecified
CPT/HCPCS: 76000; A9270-GY; C1713; C1776; J0690; J1100; J1240; J1885; J2250; J2704; J3010; J3490